=== PATIENT | female | born 1935 | race Caucasian/White ===

== ENCOUNTER → 2019-09-30 | Outpatient (CLI) | payer MEDICARE, OTHER ==
[~2019-09-30] MED LIST: AMLO5 PO; ASPI81CH PO; CYAN1000 PO; Colace100 MG PO; METO25ER PO; Norco 5-325 Ta1 EACH PO; Omeprazole20 M1 PO; Percocet 5-3251 EACH PO; SIMV80 PO
[2019-10-01 14:42] LABS: Stool Occult Bld Immuno 1 Positive (NEGATIVE)
== END | disposition home or self-care (01) ==
LOC: LAB 09:00 → LAB SHORT 09:00
PROVIDERS: Nurse Practitioner Family
DX: Z12.11 Encounter for screening for malignant neoplasm of colon (principal)
CPT/HCPCS: G0328

== ENCOUNTER 2019-11-10 13:18 | Day surgery (SDC) | payer MEDICARE, OTHER ==
[~2019-11-10] VITALS: Ht 165.1 cm; Wt 59.8 kg
[~2019-11-10 13:18] MED LIST changes: +LOW DOSE ASPIRI81 MG PO; +Metoprolol Tart25 MG PO; +Neurontin 100100 MG PO
== END 2019-11-10 15:35 | disposition home or self-care (01) ==
LOC: ORSCSDS 13:18
PROVIDERS: Surgery
PROC: 0DJD8ZZ Inspection of Lower Intestinal Tract, Via Natural or Artificial Opening Endoscopic (ICD-10-PCS; principal; 2019-11-10 14:45)
DX: R19.5 Other fecal abnormalities (principal); E78.5 Hyperlipidemia, unspecified; I10 Essential (primary) hypertension; K21.9 Gastro-esophageal reflux disease without esophagitis; Z87.891 Personal history of nicotine dependence; Z79.899 Other long term (current) drug therapy
CPT/HCPCS: J2704; J7120

== ENCOUNTER 2020-12-03 16:24 | Emergency (ER) | payer MEDICARE, OTHER ==
[~2020-12-03] VITALS: Ht 165.1 cm; Wt 61.2 kg
[2020-12-03 17:07] LABS: BASOPHILS ABSOLUTE AUTO 0.03 K/mm3 (0.00-0.23); BASOPHILS PERCENT AUTO 1 % (0-2); EOSINOPHILS PERCENT AUTO 2 % (0-6); Hematocrit 42.8 % (33.0-51.0); Hemoglobin 13.8 g/dL (11.5-16.0); IMMATURE GRAN ABSOLUTE AUTO 0.02 K/mm3 (0.00-0.10); IMMATURE GRAN PERCENT AUTO 0 % (0-1); LYMPHOCYTES ABSOLUTE AUTO 1.96 K/mm3 (0.84-5.20); LYMPHOCYTES PERCENT AUTO 32 % (21-46); MONOCYTES ABSOLUTE AUTO 0.75 K/mm3 (0.16-1.47); MONOCYTES PERCENT AUTO 12 % (4-13); Mean Corpuscular HGB 29.2 pg (26.0-34.0); Mean Corpuscular HGB Conc 32.2 g/dL (31.5-36.5); Mean Corpuscular Volume 91 fL (80-100); Mean Platelet Volume 12.1 fL (9.1-12.4); NEUTROPHILS ABSOLUTE AUTO 3.21 K/mm3 (1.96-9.15); NEUTROPHILS PERCENT AUTO 53 % (41-73); Platelet Count 109 K/mm3 (150-400); RDW Coefficient Variation 13.2 % (11.7-14.2); RDW Standard Deviation 44.6 fL (35.1-46.3); Red Blood Cell Count 4.73 M/mm3 (3.80-5.20); White Blood Cell Count 6.07 K/mm3 (4.00-11.30)
[2020-12-03 17:32] LABS: Alanine Aminotransfer (ALT/SGP 19 U/L (12-78); Albumin, Blood 3.3 g/dL (3.4-5.0); Alk Phos 94 U/L (50-136); Anion Gap 9 mmol/L (6-16); Aspartate Aminotrans (AST/SGOT 24 U/L (12-37); Bilirubin, Total 0.3 mg/dL (0.1-1.0); Blood Urea Nitrogen 21 mg/dL (8-24); Bun/Creatinine Ratio 26.8 (12.0-20.0); CO2, Blood 22 mmol/L (21-32); Calcium, Blood 8.8 mg/dL (8.5-10.1); Chloride, Blood 110 mmol/L (98-108); Creatinine, Blood 0.78 mg/dL (0.40-1.00); Globulin, Blood 3.3 g/dL (2.2-4.0); Glomerular Filtration Rate >60 (60-); Glucose, Blood 119 mg/dL (70-99); Potassium, Blood 3.8 mmol/L (3.5-5.5); Sodium, Blood 141 mmol/L (136-145); Total Protein, Blood 6.6 g/dL (6.4-8.2); Troponin I <0.015 ng/mL (0.000-0.040)
== END 2020-12-03 21:00 | disposition home or self-care (01) ==
LOC: ER 16:24
PROVIDERS: Physician Assistant
DX: R07.9 Chest pain, unspecified (principal); I10 Essential (primary) hypertension; E78.5 Hyperlipidemia, unspecified; K21.9 Gastro-esophageal reflux disease without esophagitis; Z79.82 Long term (current) use of aspirin; Z87.891 Personal history of nicotine dependence; Z79.899 Other long term (current) drug therapy
CPT/HCPCS: 36415; 71046; 80053; 84484; 85025; 93005; 93010

== ENCOUNTER 2021-05-21 17:49 | Inpatient (IN) | payer MEDICARE, OTHER ==
[~2021-05-21] VITALS: Ht 165.1 cm; Wt 56.6 kg
[~2021-05-21 17:49] MED LIST changes: +OMEP20ER PO; -Omeprazole20 M1 PO
[2021-05-21 18:12] LABS: BASOPHILS ABSOLUTE AUTO 0.06 K/mm3 (0.00-0.23); BASOPHILS PERCENT AUTO 1 % (0-2); EOSINOPHILS ABSOLUTE AUTO 0.07 K/mm3 (0.00-0.68); EOSINOPHILS PERCENT AUTO 1 % (0-6); Hematocrit 41.7 % (33.0-51.0); IMMATURE GRAN ABSOLUTE AUTO 0.02 K/mm3 (0.00-0.10); IMMATURE GRAN PERCENT AUTO 0 % (0-1); LYMPHOCYTES ABSOLUTE AUTO 2.44 K/mm3 (0.84-5.20); LYMPHOCYTES PERCENT AUTO 31 % (21-46); MONOCYTES ABSOLUTE AUTO 0.73 K/mm3 (0.16-1.47); MONOCYTES PERCENT AUTO 9 % (4-13); Mean Corpuscular HGB 30.7 pg (26.0-34.0); Mean Corpuscular HGB Conc 33.6 g/dL (31.5-36.5); Mean Corpuscular Volume 91 fL (80-100); NEUTROPHILS ABSOLUTE AUTO 4.62 K/mm3 (1.96-9.15); NEUTROPHILS PERCENT AUTO 58 % (41-73); Platelet Count 94 K/mm3 (150-400); RDW Coefficient Variation 14.5 % (11.7-14.2); RDW Standard Deviation 48.5 fL (35.1-46.3); Red Blood Cell Count 4.56 M/mm3 (3.80-5.20); White Blood Cell Count 7.94 K/mm3 (4.00-11.30)
[2021-05-21 18:25] LABS: Mean Platelet Volume 13.7 fL (9.1-12.4)
[2021-05-21 18:31] LABS: Alanine Aminotransfer (ALT/SGP 23 U/L (12-78); Albumin, Blood 3.7 g/dL (3.4-5.0); Albumin/Globulin Ratio 1.1 (0.8-1.8); Alk Phos 76 U/L (50-136); Anion Gap 9 mmol/L (6-16); Aspartate Aminotrans (AST/SGOT 27 U/L (12-37); Bilirubin, Total 0.9 mg/dL (0.1-1.0); Blood Urea Nitrogen 13 mg/dL (8-24); Bun/Creatinine Ratio 13.3 (12.0-20.0); CO2, Blood 21 mmol/L (21-32); Calcium, Blood 9.4 mg/dL (8.5-10.1); Chloride, Blood 109 mmol/L (98-108); Creatinine, Blood 0.97 mg/dL (0.40-1.00); Globulin, Blood 3.3 g/dL (2.2-4.0); Glomerular Filtration Rate 58 (60-); Glucose, Blood 106 mg/dL (70-99); Potassium, Blood 4.2 mmol/L (3.5-5.5); Sodium, Blood 139 mmol/L (136-145); Troponin I <0.015 ng/mL (0.000-0.040)
[2021-05-21 18:44] LABS: Thyroid Stimulating Hormone 4.86 uIU/mL (0.360-4.800)
[2021-05-21 23:58] LABS: Free Thyroxine 1.35 ng/dL (0.70-1.60); Magnesium, Blood 1.9 mg/dL (1.6-2.4)
[2021-05-22 02:20] LABS: CPK Creatine Kinase 131 U/L (26-193); Troponin I <0.015 ng/mL (0.000-0.040)
--- NOTE | 2021-05-22 05:22 | NUR ---
SHIFT SUMMARY PT NEW ED ADMIT. A/O X 4. HX OF SCOLIOSIS, CURVATURE TO SPINE NOTED. PT STEADY ON FEET, HOWEVER PT IS GETTING SOB W/ EXERTION. BSC PLACED BY BEDSIDE PT IS UP FREQUENTLY RELATED TO LASIX GIVEN. TELEMETRY ON. HEART RATE AFIB IN THE LOW 100'S-110'S. HEART RATE DOES GO UP INTO THE 130'S-140'S WITH EXERTION BUT ONLY STAYS UP THERE FOR A FEW MINUTES AND THEN RETURNS BACK TO THE LOW 100'S AFTER RESTING. NO COMPLAINTS OF PAIN. ASIDE FROM INTERMITTENT RVR PT'S VITALS STABLE. PT RESTING IN BED AT THIS TIME. WILL CONTINUE TO MONITOR.
[2021-05-22 10:34] LABS: BASOPHILS ABSOLUTE AUTO 0.05 K/mm3 (0.00-0.23); BASOPHILS PERCENT AUTO 1 % (0-2); EOSINOPHILS ABSOLUTE AUTO 0.04 K/mm3 (0.00-0.68); EOSINOPHILS PERCENT AUTO 1 % (0-6); Hematocrit 43.4 % (33.0-51.0); Hemoglobin 14.4 g/dL (11.5-16.0); IMMATURE GRAN ABSOLUTE AUTO 0.02 K/mm3 (0.00-0.10); IMMATURE GRAN PERCENT AUTO 0 % (0-1); LYMPHOCYTES ABSOLUTE AUTO 1.37 K/mm3 (0.84-5.20); LYMPHOCYTES PERCENT AUTO 17 % (21-46); MONOCYTES ABSOLUTE AUTO 0.75 K/mm3 (0.16-1.47); MONOCYTES PERCENT AUTO 9 % (4-13); Mean Corpuscular HGB Conc 33.2 g/dL (31.5-36.5); Mean Corpuscular Volume 90 fL (80-100); NEUTROPHILS ABSOLUTE AUTO 5.85 K/mm3 (1.96-9.15); NEUTROPHILS PERCENT AUTO 72 % (41-73); Platelet Count 92 K/mm3 (150-400); RDW Coefficient Variation 14.4 % (11.7-14.2); RDW Standard Deviation 46.9 fL (35.1-46.3); White Blood Cell Count 8.08 K/mm3 (4.00-11.30)
[2021-05-22 10:48] LABS: Mean Platelet Volume 13.6 fL (9.1-12.4)
[2021-05-22 10:52] LABS: Alanine Aminotransfer (ALT/SGP 22 U/L (12-78); Albumin, Blood 3.7 g/dL (3.4-5.0); Alk Phos 79 U/L (50-136); Anion Gap 10 mmol/L (6-16); Aspartate Aminotrans (AST/SGOT 27 U/L (12-37); Bilirubin, Total 1.2 mg/dL (0.1-1.0); Blood Urea Nitrogen 12 mg/dL (8-24); Bun/Creatinine Ratio 12.9 (12.0-20.0); CO2, Blood 21 mmol/L (21-32); CPK Creatine Kinase 136 U/L (26-193); Calcium, Blood 9.2 mg/dL (8.5-10.1); Chloride, Blood 108 mmol/L (98-108); Creatinine, Blood 0.93 mg/dL (0.40-1.00); Globulin, Blood 3.6 g/dL (2.2-4.0); Glomerular Filtration Rate >60 (60-); Glucose, Blood 100 mg/dL (70-99); Potassium, Blood 3.9 mmol/L (3.5-5.5); Sodium, Blood 139 mmol/L (136-145); Total Protein, Blood 7.3 g/dL (6.4-8.2)
[2021-05-22 10:54] LABS: Troponin I <0.015 ng/mL (0.000-0.040)
--- NOTE | 2021-05-22 16:03 | NUR ---
UPDATE ASSUMED CARE OF PT FROM [facility]. PT ALERT AND ORIENTED. HR AFIB 120'S. BP STABLE. O2 SATS REMAIN ABOVE 90% ON RA. PT DENIES ANY SOB OR PALPITATIONS. DILTIAZEM DRIP STARTED AT 5ML/H. PT ORIENTED TO ROOM AND UNIT. PT INSTRUCTED TO CALL BEFORE AMBULATION. AT BEDSIDE. WILL CONTINUE TO MONITOR CLOSELY
--- NOTE | 2021-05-22 17:29 | NUR ---
SHIFT SUMMARY HR REMAINS AFIB WITH RATE RANGING FROM 90-110. CARDIZEM GTT INCREASED TO 10ML/H. BP STABLE. PT DENIES ANY NEEDS. CALL LIGHT IN REACH. WILL CONTINUE TO MONITOR CLOSELY AND REPORT TO ONCOMING RN.
--- NOTE | 2021-05-22 19:14 | NUR ---
PATIENT TRANSFER: PATIENT TRANSFERRED TO PCU-13 c TELE. REPORT GIVEN TO LOIS BERRIOS.
--- NOTE | 2021-05-22 19:55 | NUR ---
ASSUMED CARE PT IS ALERT AND ORIENTED X4. PLEASANTLY CALM LAYING IN BED. DENIES CHEST PAIN OR SOB. DENIES ANY PAIN. VITALS ARE STABLE AND ON ROOM AIR WITH SATS ABOVE 92%. PT DENIES THE NEED TO USE BATHROOM AT THE TIME. HAS NOT BEEN OUT OF BED SINCE TRANSFERED TO UNIT. WAS ASKED TO CALL WHEN NEEDING TO GET UP. BED ALARM ON FOR ASSESSMENT OF AMBULATION. CALL LIGHT IS WITHIN REACH. WILL CONTINUE TO MONITOR.
--- NOTE | 2021-05-22 21:25 | NUR ---
PT'S HEART RATE UP TO 120-130'S WHILE AMBULATING TO AND FROM BATHROOM
[2021-05-23 04:42] LABS: BASOPHILS ABSOLUTE AUTO 0.06 K/mm3 (0.00-0.23); BASOPHILS PERCENT AUTO 1 % (0-2); EOSINOPHILS ABSOLUTE AUTO 0.13 K/mm3 (0.00-0.68); EOSINOPHILS PERCENT AUTO 2 % (0-6); Hematocrit 42.7 % (33.0-51.0); Hemoglobin 14.2 g/dL (11.5-16.0); IMMATURE GRAN ABSOLUTE AUTO 0.02 K/mm3 (0.00-0.10); IMMATURE GRAN PERCENT AUTO 0 % (0-1); LYMPHOCYTES PERCENT AUTO 27 % (21-46); MONOCYTES ABSOLUTE AUTO 0.83 K/mm3 (0.16-1.47); MONOCYTES PERCENT AUTO 12 % (4-13); Mean Corpuscular HGB 30.1 pg (26.0-34.0); Mean Corpuscular HGB Conc 33.3 g/dL (31.5-36.5); Mean Corpuscular Volume 91 fL (80-100); NEUTROPHILS ABSOLUTE AUTO 4.24 K/mm3 (1.96-9.15); NEUTROPHILS PERCENT AUTO 59 % (41-73); Platelet Count 89 K/mm3 (150-400); RDW Coefficient Variation 14.3 % (11.7-14.2); RDW Standard Deviation 47.5 fL (35.1-46.3); Red Blood Cell Count 4.71 M/mm3 (3.80-5.20); White Blood Cell Count 7.18 K/mm3 (4.00-11.30)
[2021-05-23 04:49] LABS: Mean Platelet Volume 13.5 fL (9.1-12.4)
[2021-05-23 05:04] LABS: Albumin, Blood 3.4 g/dL (3.4-5.0); Anion Gap 7 mmol/L (6-16); Blood Urea Nitrogen 10 mg/dL (8-24); Bun/Creatinine Ratio 13.3 (12.0-20.0); CO2, Blood 25 mmol/L (21-32); Calcium, Blood 8.9 mg/dL (8.5-10.1); Chloride, Blood 105 mmol/L (98-108); Creatinine, Blood 0.75 mg/dL (0.40-1.00); Glomerular Filtration Rate >60 (60-); Glucose, Blood 76 mg/dL (70-99); Magnesium, Blood 1.9 mg/dL (1.6-2.4); Phosphorus, Blood 3.9 mg/dL (2.5-4.9); Potassium, Blood 3.4 mmol/L (3.5-5.5); Sodium, Blood 137 mmol/L (136-145)
--- NOTE | 2021-05-23 06:00 | NUR ---
SHIFT SUMMARY PT ALERT AND ORIENTED. DENIES CP OR SOB. VITALS ARE STABLE AND ON ROOM AIR. HEART RATE HAS RANGED AT 120-130 WHEN PATIENT IS UP TO THE BATHROOM. THERE HAVE BEEN NO ACCUTE CHANGES.
--- NOTE | 2021-05-23 18:00 | NUR ---
SHIFT SUMMARY NO ACUTE EVENTS THIS SHIFT, VSS. ON ROOM AIR, TOLERATING WELL. PATIENT ALERT AND ORIENTED, COOPERATIVE WITH CARE. PATIENT DENIES PAIN/DISCMOFORT, ABLE TO AMBULATE INDEPENDENTLY IN ROOM. PT HR ELEVATED AT START OF SHIFT IN 120S, THROUGH DAY CAME DOWN AND NOW MAINTAINING IN 90S AT END OF SHIFT.
[2021-05-24 04:22] LABS: Hematocrit 42.8 % (33.0-51.0); Hemoglobin 14.4 g/dL (11.5-16.0)
[2021-05-24 04:36] LABS: Albumin, Blood 3.2 g/dL (3.4-5.0); Anion Gap 8 mmol/L (6-16); Blood Urea Nitrogen 13 mg/dL (8-24); Bun/Creatinine Ratio 17.6 (12.0-20.0); CO2, Blood 25 mmol/L (21-32); Calcium, Blood 8.7 mg/dL (8.5-10.1); Chloride, Blood 104 mmol/L (98-108); Creatinine, Blood 0.74 mg/dL (0.40-1.00); Glomerular Filtration Rate >60 (60-); Glucose, Blood 94 mg/dL (70-99); Phosphorus, Blood 4.1 mg/dL (2.5-4.9); Potassium, Blood 3.6 mmol/L (3.5-5.5); Sodium, Blood 137 mmol/L (136-145)
--- NOTE | 2021-05-24 04:52 | NUR ---
SHIFT SUMMARY PT AXO. IN AFIB, CONTROLLED 80'S HR WITH STABLE BP. VSS ON RA. PT STATES BEING CONFORTABLE T/O SHIFT. RESTING OFF AND ON T/O NIGHT. HAS BEEN USING CALL LIGHT APPROPRIATELY. OTHERWISE, PT REQUIRING LITTLE FROM NURSE.
--- NOTE | 2021-05-24 08:00 | NUR ---
PT ALERT AND ORIENTED X4. ON ROOM AIR SATING HIGH 90'S. DENIES CHEST PAIN/PRESSURE. VITAL SIGNS STABLE WITH ELEVATED HR 140'S. PO CARDIZEM, GIVEN THIS AM. TELE SHOWING AFIB. CALL PLACED TO DR. RUBIO. CARDIOLOGY CONSULT IN PLACE. DENIES OVERALL PAIN. CHRONIC NUMBNESS/TINGLING TO RIGHT FOOT. BOWEL TONES HEARD. ANTIBIOTICS INFUSED THIS AM. PT NOT VERY INTERESTED IN BREAKFAST. NPO AFTER BREAKFAST. WILL CONTINUE TO MONITOR.
--- NOTE | 2021-05-24 10:54 | NUR ---
DR. GARRISON IN TO SEE PATIENT. NEW ORDERS TO START CARDIZEM DRIP. CARDIZEM, DRIP STARTED AT 5MG/HR. WILL CONTINUE TO MONITOR BP AND HR. HOLDING PO CARDIZEM AT THIS TIME PER ORDERS.
--- NOTE | 2021-05-24 12:15 | NUR ---
PT VITAL SIGNS STABLE. PLAN FOR DENIZ TODAY AND POSSIBLE CARDIOVERSION PER DR. GARRISON. NPO. DAUGHTER NATHANAEL AWARE AND ON WAY HERE. WILL PAGE DR. GARRISON WHEN DAUGHTER IS HERE. PLAN TO START HEPARIN TONIGHT AT 1800. NIKOLAY HAS BEEN DC'ED. PATIENT CURRENTLY ON CARDIZEM AT 5MG/HR HR MAINTAINING MID 90'S. BP STABLE AT THIS TIME. WILL CONTINUE TO MONITOR.
--- NOTE | 2021-05-24 13:28 | NUR ---
BP 96/68. CARDIZEM TURNED OFF AT 1326 BASED ON PARAMETERS. PAGE PLACED TO DR. GARRISON. WILL CONTINUE TO MONITOR.
[2021-05-24 13:54] LABS: International Normalized Ratio 1.17; Prothrombin Time Results 12.5 Sec (9.7-11.5)
--- NOTE | 2021-05-24 15:54 | NUR ---
PT AT DENIZ WITH POSSIBLE CARDIOVERSION PROCEDURE. DR. PATEL AWARE OF PLATELET COUNT.
--- NOTE | 2021-05-24 16:20 | NUR ---
PT DENIZ/CARDIOVERSION COMPLETED SUCCESSFULLY, 1 200J SHOCK, SINUS. 12L EKG DONE PER V/O, SINUS. DAUGHTER W PT NOW, PT AWAKE AND VERBALIZES UNDERSTANDING, DENTURES BACK IN PT MOUTH, WILL RETURN PT TO PCU 13 BY PRAVIN.
--- NOTE | 2021-05-24 19:23 | NUR ---
SHIFT SUMMARY: NO ACUTE CHANGES. PT REMAINS STABLE AFTER DENIZ AND CARDIOVERSION. TELE SHOWING SINUS WITH HR 60-70'S. DENIES CHEST PAIN/PRESSURE. HEPARIN STARTED AT 1703. POWERGLIDE TO BE INSERTED TO START AMIODARONE. PT DOES NOT HAVE MUCH OF AN APPEATITE. DRINKING WATER AND EATING ICE CREAM. PLAN FOR NPO AT MIDNIGHT. EKG AT 0500. CALL LIGHT IN REACH. REPORTED OFF TO ONCOMING RN.
--- NOTE | 2021-05-25 01:34 | NUR ---
0115: RECEIVED PHONE CALL FROM [facility] FROM LAB WITH A CRITICAL VALUE, PTT > 139. 0120: RECEIVED PHONE CALL FROM [facility] FROM LAB, WITH ORDER TO STOP HEPARIN FOR ONE HOUR. RN AND VELIA Davis STOPPED HEPARIN. 0125: NOTIFIED CHARGE NURSE TIA Hudson 0135: RE-DRAWING [facility] FROM [facility].
--- NOTE | 2021-05-25 02:19 | NUR ---
CRITICAL VALUE 0220: RECEIVED PHONE CALL FROM [facility] AT LAB, OF A PTT >139. 022: PLACED PHONE CALL TO SARABJIT BECERRA IN PHARMACY - NOTIFIED OF CRITICAL VALUE. ORDER TO RESTART HEP DRIP AT 0300 AT A LOWER RATE 11 U/KG/HR, PER EMAR.
[2021-05-25 05:33] LABS: Hematocrit 39.5 % (33.0-51.0); Hemoglobin 13.1 g/dL (11.5-16.0); Mean Corpuscular HGB 29.9 pg (26.0-34.0); Mean Corpuscular HGB Conc 33.2 g/dL (31.5-36.5); Mean Corpuscular Volume 90 fL (80-100); Platelet Count 95 K/mm3 (150-400); RDW Coefficient Variation 14.2 % (11.7-14.2); Red Blood Cell Count 4.38 M/mm3 (3.80-5.20); White Blood Cell Count 7.26 K/mm3 (4.00-11.30)
[2021-05-25 05:34] LABS: Mean Platelet Volume 14.2 fL (9.1-12.4)
[2021-05-25 05:49] LABS: Anion Gap 7 mmol/L (6-16); Blood Urea Nitrogen 14 mg/dL (8-24); Bun/Creatinine Ratio 17.8 (12.0-20.0); CHOL/HDL RATIO 1.6; CO2, Blood 26 mmol/L (21-32); Calcium, Blood 8.1 mg/dL (8.5-10.1); Chloride, Blood 104 mmol/L (98-108); Cholesterol 107 mg/dL (50-200); Creatinine, Blood 0.79 mg/dL (0.40-1.00); Glomerular Filtration Rate >60 (60-); Glucose, Blood 90 mg/dL (70-99); HDL Cholesterol 65 mg/dL (>39); LDL/HDL RATIO 0.5; Low Density Lipoprotein Chol 30 mg/dL (0-110); Magnesium, Blood 1.8 mg/dL (1.6-2.4); Potassium, Blood 3.5 mmol/L (3.5-5.5); Sodium, Blood 137 mmol/L (136-145); Triglycerides 61 mg/dL (30-160); Very Low Density Lipoprot Chol 12 mg/dL (6-32)
[2021-05-25 05:56] LABS: BASOPHILS ABSOLUTE MAN 0.07 K/mm3 (0.00-0.23); BASOPHILS PERCENT MAN 1 % (0-2); EOSINOPHILS ABSOLUTE MAN 0.14 K/mm3 (0.00-0.68); EOSINOPHILS PERCENT MAN 2 % (0-6); LYMPHOCYTES % ATYPICAL MANUAL 1 % (0-0); LYMPHOCYTES ABSOLUTE MAN 1.81 K/mm3 (0.84-5.20); LYMPHOCYTES PERCENT MAN 24 % (21-46); MONOCYTES ABSOLUTE MAN 1.01 K/mm3 (0.16-1.47); MONOCYTES PERCENT MAN 14 % (4-13); NEUTROPHILS ABSOLUTE MAN 4.21 K/mm3 (1.96-9.15); SEG NEUTROPHILS PERCENT MAN 58 % (41-73); TOTAL CELLS COUNTED 100
--- NOTE | 2021-05-25 06:44 | NUR ---
SHIFT SUMMARY PT HAS HEPARIN INFUSING INTO HER RIGHT HAND AND AMIODARONE INTO HER RIGHT UA POWERGLIDE. POWERGLIDE DRAWS FOR LABS. PT HAD PTT >139, CRITICAL VALUE LABS AT 0115 AND 0220. SHE IS INDEPENDENT TO THE BSC. DENIES CHEST PAIN. WILL CONTINUE TO MONITOR.
--- NOTE | 2021-05-25 11:00 | NUR ---
PT ALERT AND ORIENTED X4. ON ROOM AIR SATING MID 90'S. TELE SHOWING SINUS WITH SINUS WITH HR 60-70'S. VITAL SIGNS STABLE. DENIES CHEST PAIN/PRESSURE. WAITING FOR ANGIOGRAM THIS AM. DR. GUADALUPE INTO SEE PATIENT THIS MORNING TO EXPLAIN PROCEDURE. DENIES PAIN. USING BSC. HEPARIN AND AMIO INFUSING. ANTIBIOTICS INFUSED WELL. ONE EPISODE OF DIARRHEA THIS AFTERNOON. WILL CONTINUE TO MONITOR.
--- NOTE | 2021-05-25 13:04 | NUR ---
PT TAKEN TO [facility] FOR ANGIOGRAM.
--- NOTE | 2021-05-25 15:46 | NUR ---
ACT RESULTS 169
--- NOTE | 2021-05-25 16:20 | NUR ---
RIGHT FEMORAL ARTERIAL SHEATH PULLED BY ISAC GARCIA RN WITH GOOD HEMOSTASIS. MANUAL PRESSURE HELD.
--- NOTE | 2021-05-25 16:24 | NUR ---
ACT RESULTS 158 @ 16:20
--- NOTE | 2021-05-25 16:39 | NUR ---
2 CC AIR REMOVED FROM RIGHT RADIAL TR BAND SITE SOFT AND NONTENDER.
--- NOTE | 2021-05-25 16:45 | NUR ---
RIGHT FEMORAL VENOUS SHEATH REMOVED BY ISAC GARCIA WITH GOOD HEMOSTASIS
--- NOTE | 2021-05-25 16:49 | NUR ---
2 MORE CC AIR REMOVED FROM TR. SITE REMAINS STABLE
--- NOTE | 2021-05-25 16:56 | NUR ---
A TOTAL OF 6 CC HAVE BEEN REMOVED FROM TR BAND.
--- NOTE | 2021-05-25 16:57 | NUR ---
1630 PULLED ARTERIAL SHEATH 4 FR. FROM THE RFA AND HELD 20 MINUTES OF MANUAL PRESSURE HELD AND THEN VENOUS SHEATH 6 FR. PULLED AND MANUAL PRESSURE HELD FOR ANOTHER 10 MINUTES. DECLAN APPLIED TO THE RFA/RFV ACCESS SITE. HEMOSTASIS OBTAINED AND DRESSING. PATEINT REPOSITIONED IN THE BED AND LEG STRAP REAPPLIED TO THE RIGHT LEG TO REMIND PATIENT TO KEEP THE RIGHT LEG STRAIGHT. VVS.
--- NOTE | 2021-05-25 17:01 | NUR ---
A TOTAL OF 8 CC REMOVED FROM TR BAND. RIGHT GROIN SITE SOFT AND NONTENDER NO SWELLING
--- NOTE | 2021-05-25 17:14 | NUR ---
REMAINING AIR HAS BEEN REMOVED FROM TR BAND. SITE REMAINS SOFT AND NONTENDER
--- NOTE | 2021-05-25 17:36 | NUR ---
PATIENT RETURNED TO PCU 13. SEE TRNSFER OF CARE NOTE
--- NOTE | 2021-05-25 18:14 | NUR ---
PT BACK FROM ANGIOGRAM AT 1726. RIGHT RADIAL AND RIGHT GROIN SITE. VITAL SIGNS STABLE. NO STENT PLACEMENT. DIAGNOSTIC ANGIOGRAM FOR POSSIBLE MITRAL VALVE CLIPPING OR REPLACEMENT IN GERRY. PT RETURNS WITH RIGHT RADIAL SIGHT TR BAND DEFLATED. ABLE TO REMOVE BAND AT 1830. NO SIGNS OF BLEEDING OR HEMATOMA. SCANT AMOUNT OF DRAINAGE UNDER TR BAND REMAINS UNCHANGED. PT DENIES PAIN. RIGHT GROIN SIGHT WITH DECLAN PATCH. DRESSING C/D/I. SOFT AND NONTENDER. NO SIGNS OF BLEEDING OR HEMATOMA IN GROIN. PT EDUCATED ON POST ANGIOGRAM RESTRICTIONS. LYING FLAT AND ARM BOARD ON. POST VITAL SIGNS STABLE. WILL CONTINUE TO MONITOR SIGHTS. CARDIAC FINGER FOOD DIET ORDERED, PT NOT INTERESTED IN EATING AT THIS TIME. CALL PLACED TO DAUGHTER.
--- NOTE | 2021-05-26 02:09 | NUR ---
PT UNDERWENT ANGIO TODAY, WITH RIGHT RADIAL AND RIGHT GROIN SITE ACCESS. RIGHT GROIN SITE IS COVERED WITH A DECLAN DRESSING, NO SIGNS OF BLEEDING OR HEMATOMA. PT WAS RECOVERED PER POLICY, BY SLOWLY ELEVATED HOB 15 DEG INCREMENTALLY AND ASSESSING FOR BLEEDING AT GROIN SITE. PT WAS OUT OF BED BY 2100 , AND AMBULATED TO [facility] WITH ONE NURSE STAND BY ASSIST. PT HAS RADIAL SITE WITH ARMBOARD IN PLACE. CLEAR TEGADERM APPLIED TO COVER SITE. NO BRUISING, DRAINAGE NOTED, RADIAL PULSE PRESENT AND STRONG. PT MONITORED VIA TELEMETRY, SINUS 67. VSS. STARTED PO XARELTO THIS EVENING.
[2021-05-26 04:42] LABS: BASOPHILS ABSOLUTE AUTO 0.06 K/mm3 (0.00-0.23); BASOPHILS PERCENT AUTO 1 % (0-2); EOSINOPHILS PERCENT AUTO 2 % (0-6); Hematocrit 39.5 % (33.0-51.0); Hemoglobin 13.2 g/dL (11.5-16.0); IMMATURE GRAN ABSOLUTE AUTO 0.02 K/mm3 (0.00-0.10); IMMATURE GRAN PERCENT AUTO 0 % (0-1); LYMPHOCYTES ABSOLUTE AUTO 1.49 K/mm3 (0.84-5.20); LYMPHOCYTES PERCENT AUTO 23 % (21-46); MONOCYTES PERCENT AUTO 12 % (4-13); Mean Corpuscular HGB 30.3 pg (26.0-34.0); Mean Corpuscular HGB Conc 33.4 g/dL (31.5-36.5); Mean Corpuscular Volume 91 fL (80-100); NEUTROPHILS ABSOLUTE AUTO 4.16 K/mm3 (1.96-9.15); NEUTROPHILS PERCENT AUTO 63 % (41-73); Platelet Count 91 K/mm3 (150-400); RDW Coefficient Variation 14.3 % (11.7-14.2); RDW Standard Deviation 47.8 fL (35.1-46.3); Red Blood Cell Count 4.35 M/mm3 (3.80-5.20); White Blood Cell Count 6.63 K/mm3 (4.00-11.30)
[2021-05-26 04:59] LABS: Anion Gap 8 mmol/L (6-16); Blood Urea Nitrogen 14 mg/dL (8-24); Bun/Creatinine Ratio 16.7 (12.0-20.0); CO2, Blood 24 mmol/L (21-32); Calcium, Blood 8.6 mg/dL (8.5-10.1); Chloride, Blood 107 mmol/L (98-108); Creatinine, Blood 0.84 mg/dL (0.40-1.00); Glomerular Filtration Rate >60 (60-); Glucose, Blood 80 mg/dL (70-99); Potassium, Blood 4.2 mmol/L (3.5-5.5); Sodium, Blood 139 mmol/L (136-145)
[2021-05-26] MEDS ORDERED: Amiodarone HCl200 MG PO (11:11)
[2021-05-26] MEDS ORDERED: XARELTO20 MG PO (11:12)
[2021-05-26] MEDS ORDERED: FURO40 PO (11:12)
--- NOTE | 2021-05-26 13:44 | NUR ---
PT DISHCARGED PT PROVIDED WITH DISHCARGE INSTRUCTIONS PER PHYSICIAN ORDER. IV REMOVED, POWERGLIDE REMOVED. TELE REMOVED. PT'S MEDICATIONS FAXED TO PT'S PREFERRED PHARMACY. PT BROUGHT TO DAUGHTER'S VEHICLE BY PRODUCTION GRIP WITH ALL BELONGINGS BY WHEELCHAIR.
== END 2021-05-26 13:25 | disposition home or self-care (01) | DRG 286 ==
LOC: ER 17:49 → MEDS 19:38 → PCU 05-22 14:01 → MEDS 05-22 14:01 → PCU 05-22 15:31
PROVIDERS: Emergency Medicine; Internal Medicine; Internal Medicine Cardiovascular Disease; Physician Assistant; ADMIT Internal Medicine
PROC: 02HP32Z Insertion of Monitoring Device into Pulmonary Trunk, Percutaneous Approach (ICD-10-PCS; 2021-05-24)
PROC: 4A023N8 Measurement of Cardiac Sampling and Pressure, Bilateral, Percutaneous Approach (ICD-10-PCS; 2021-05-24)
PROC: B211YZZ Fluoroscopy of Multiple Coronary Arteries using Other Contrast (ICD-10-PCS; 2021-05-24)
PROC: 5A2204Z Restoration of Cardiac Rhythm, Single (ICD-10-PCS; principal; 2021-05-25)
DX: I48.0 Paroxysmal atrial fibrillation (principal); J96.01 Acute respiratory failure with hypoxia; I50.33 Acute on chronic diastolic (congestive) heart failure; J18.9 Pneumonia, unspecified organism; Q21.1 Atrial septal defect; Q24.5 Malformation of coronary vessels; I11.0 Hypertensive heart disease with heart failure; K21.9 Gastro-esophageal reflux disease without esophagitis; G62.9 Polyneuropathy, unspecified; I27.20 Pulmonary hypertension, unspecified; E87.6 Hypokalemia; I34.0 Nonrheumatic mitral (valve) insufficiency; M40.209 Unspecified kyphosis, site unspecified; E78.00 Pure hypercholesterolemia, unspecified; D69.6 Thrombocytopenia, unspecified; E78.5 Hyperlipidemia, unspecified; Z87.891 Personal history of nicotine dependence; Z79.82 Long term (current) use of aspirin; Z79.899 Other long term (current) drug therapy
CPT/HCPCS: 36415; 71045; 76937; 80048; 80053; 80061; 80069; 82550; 83735; 83880; 84145; 84439; 84443; 84484; 85014; 85018; 85025; 85347; 85379; 85610; 85730; 93005; 93010; 93306; 93312; 93325; 93456; 96374; 96375; 96376; 99152; 99153; 99285-25; A9270; C1751; C1769; C1894; G0378; J0282; J0696; J1644; J1940; J2250; J2370; J2704; J3010; J7030; J7050; J7060; Q9967

== ENCOUNTER 2021-06-01 12:47 | Emergency (ER) | payer MEDICARE, OTHER ==
[~2021-06-01] VITALS: Ht 165.1 cm; Wt 56.7 kg
[~2021-06-01 12:47] MED LIST changes: +Amiodarone HCl200 MG PO; +FURO40 PO; +XARELTO20 MG PO
[2021-06-01 13:40] LABS: BASOPHILS ABSOLUTE AUTO 0.05 K/mm3 (0.00-0.23); BASOPHILS PERCENT AUTO 1 % (0-2); EOSINOPHILS ABSOLUTE AUTO 0.04 K/mm3 (0.00-0.68); EOSINOPHILS PERCENT AUTO 1 % (0-6); Hematocrit 43.9 % (33.0-51.0); Hemoglobin 14.8 g/dL (11.5-16.0); IMMATURE GRAN ABSOLUTE AUTO 0.03 K/mm3 (0.00-0.10); IMMATURE GRAN PERCENT AUTO 1 % (0-1); LYMPHOCYTES ABSOLUTE AUTO 1.35 K/mm3 (0.84-5.20); LYMPHOCYTES PERCENT AUTO 26 % (21-46); MONOCYTES ABSOLUTE AUTO 0.53 K/mm3 (0.16-1.47); MONOCYTES PERCENT AUTO 10 % (4-13); Mean Corpuscular HGB 30.5 pg (26.0-34.0); Mean Corpuscular HGB Conc 33.7 g/dL (31.5-36.5); Mean Corpuscular Volume 90 fL (80-100); NEUTROPHILS ABSOLUTE AUTO 3.29 K/mm3 (1.96-9.15); NEUTROPHILS PERCENT AUTO 62 % (41-73); Platelet Count 111 K/mm3 (150-400); RDW Coefficient Variation 13.6 % (11.7-14.2); RDW Standard Deviation 45.5 fL (35.1-46.3); Red Blood Cell Count 4.86 M/mm3 (3.80-5.20); White Blood Cell Count 5.29 K/mm3 (4.00-11.30)
[2021-06-01 13:57] LABS: Alanine Aminotransfer (ALT/SGP 32 U/L (12-78); Albumin, Blood 3.8 g/dL (3.4-5.0); Albumin/Globulin Ratio 1.1 (0.8-1.8); Alk Phos 66 U/L (50-136); Anion Gap 7 mmol/L (6-16); Aspartate Aminotrans (AST/SGOT 33 U/L (12-37); Bilirubin, Total 0.6 mg/dL (0.1-1.0); Blood Urea Nitrogen 13 mg/dL (8-24); Bun/Creatinine Ratio 10.3 (12.0-20.0); CO2, Blood 28 mmol/L (21-32); Calcium, Blood 9.4 mg/dL (8.5-10.1); Chloride, Blood 99 mmol/L (98-108); Creatinine, Blood 1.26 mg/dL (0.40-1.00); Globulin, Blood 3.6 g/dL (2.2-4.0); Glomerular Filtration Rate 43 (60-); Glucose, Blood 125 mg/dL (70-99); Potassium, Blood 3.9 mmol/L (3.5-5.5); Sodium, Blood 134 mmol/L (136-145); Total Protein, Blood 7.4 g/dL (6.4-8.2); Troponin I <0.015 ng/mL (0.000-0.040)
== END 2021-06-01 14:50 | disposition home or self-care (01) ==
LOC: ER 12:47
PROVIDERS: Physician Assistant
DX: R55 Syncope and collapse (principal); S00.11XA Contusion of right eyelid and periocular area, initial encounter; I10 Essential (primary) hypertension; I48.91 Unspecified atrial fibrillation; E78.5 Hyperlipidemia, unspecified; K21.9 Gastro-esophageal reflux disease without esophagitis; Z79.01 Long term (current) use of anticoagulants; Z79.899 Other long term (current) drug therapy; W18.30XA Fall on same level, unspecified, initial encounter
CPT/HCPCS: 36415; 70450; 72125; 80053; 84484; 85025; 93005; 93010; 94060; 94726; 94729; 99285-25; A9270

== ENCOUNTER 2021-06-05 18:44 | Emergency (ER) | payer MEDICARE, OTHER ==
[~2021-06-05] VITALS: Ht 165.1 cm; Wt 55.3 kg
[2021-06-05 19:17] LABS: BASOPHILS ABSOLUTE AUTO 0.05 K/mm3 (0.00-0.23); BASOPHILS PERCENT AUTO 1 % (0-2); Hematocrit 41.4 % (33.0-51.0); Hemoglobin 14.5 g/dL (11.5-16.0); LYMPHOCYTES ABSOLUTE AUTO 0.94 K/mm3 (0.84-5.20); LYMPHOCYTES PERCENT AUTO 10 % (21-46); MONOCYTES ABSOLUTE AUTO 1.35 K/mm3 (0.16-1.47); MONOCYTES PERCENT AUTO 15 % (4-13); Mean Corpuscular HGB 30.1 pg (26.0-34.0); Mean Corpuscular Volume 86 fL (80-100); Platelet Count 119 K/mm3 (150-400); RDW Coefficient Variation 13.2 % (11.7-14.2); RDW Standard Deviation 41.5 fL (35.1-46.3); Red Blood Cell Count 4.81 M/mm3 (3.80-5.20); White Blood Cell Count 9.15 K/mm3 (4.00-11.30)
[2021-06-05 19:18] LABS: EOSINOPHILS PERCENT AUTO 0 % (0-6); IMMATURE GRAN ABSOLUTE AUTO 0.05 K/mm3 (0.00-0.10); IMMATURE GRAN PERCENT AUTO 1 % (0-1); NEUTROPHILS ABSOLUTE AUTO 6.76 K/mm3 (1.96-9.15); NEUTROPHILS PERCENT AUTO 74 % (41-73)
[2021-06-05 19:37] LABS: Albumin, Blood 2.9 g/dL (3.4-5.0); Albumin/Globulin Ratio 0.8 (0.8-1.8); Bilirubin, Total 0.5 mg/dL (0.1-1.0); Bun/Creatinine Ratio 14.1 (12.0-20.0); Calcium, Blood 8.5 mg/dL (8.5-10.1); Creatinine, Blood 0.99 mg/dL (0.40-1.00); Globulin, Blood 3.7 g/dL (2.2-4.0); Total Protein, Blood 6.6 g/dL (6.4-8.2)
[2021-06-06 00:13] LABS: Source, Urine Clean Catch
[2021-06-06 00:16] LABS: Bilirubin, Urine Neg (Neg); Blood, Urine 1+ (Neg); Glucose Qualitative, Urine Neg (Neg); Ketones, Urine Neg (Neg); Leukocyte Esterase, Urine 2+ (Neg); Nitrite, Urine Neg (Neg); Protein, Urine 1+ (Neg); Specific Gravity, Urine 1.005 (1.003-1.022); Urobilinogen, Urine NORM (Normal)
[2021-06-06 00:24] LABS: Appearance, Urine Clear (Clear); Color, Urine Yellow (P-Yellow)
[2021-06-06 00:25] LABS: Bacteria Mod /hpf; Squamous Epithelial Cells Few /hpf (Few)
[2021-06-06] MEDS ORDERED: ONDA4ODT MM (01:28)
[2021-06-06] MEDS ORDERED: AMOCLA875 PO (01:28)
[2021-06-06 03:54] LABS: Adenovirus F 40/41 Not Detected (NOT DETECT); Astrovirus Not Detected (NOT DETECT); Campylobacter Sp Not Detected (NOT DETECT); Cryptosporidium Not Detected (NOT DETECT); Cyclospora Cayetanensis Not Detected (NOT DETECT); E. Coli O157 Not Detected (NOT DETECT); Entamoeba Histolytica Not Detected (NOT DETECT); Enteroaggregative E. coli-EAEC Not Detected (NOT DETECT); Enteropathogenic E. coli-EPEC Not Detected (NOT DETECT); Enterotoxigenic E. coli-ETEC Not Detected (NOT DETECT); Giardia Lamblia Not Detected (NOT DETECT); Norovirus GI/GII Not Detected (NOT DETECT); Plesiomonas Shigelloides Not Detected (NOT DETECT); Rotavirus A Not Detected (NOT DETECT); Salmonella Sp Not Detected (NOT DETECT); Sapovirus Not Detected (NOT DETECT); Shiga Toxin-prod E. coli-STEC Not Detected (NOT DETECT); Shigella/Enteroin E. coli-EIEC Not Detected (NOT DETECT); Vibrio Cholerae Not Detected (NOT DETECT); Vibrio Sp Not Detected (NOT DETECT); Yersinia Enterocolitica Not Detected (NOT DETECT)
== END 2021-06-06 01:35 | disposition home or self-care (01) ==
LOC: ER 18:44
PROVIDERS: Physician Assistant
DX: K52.9 Noninfective gastroenteritis and colitis, unspecified (principal); E87.6 Hypokalemia; I10 Essential (primary) hypertension; E78.5 Hyperlipidemia, unspecified; K21.9 Gastro-esophageal reflux disease without esophagitis; R19.7 Diarrhea, unspecified; I48.91 Unspecified atrial fibrillation; Z79.01 Long term (current) use of anticoagulants; Z88.8 Allergy status to other drugs, medicaments and biological substances; Z79.899 Other long term (current) drug therapy
CPT/HCPCS: 0097U; 71101; 74177; 80053; 81001; 83690; 84484; 85025; 87086; 87324; 93005; 93010; 96374; 99284-25; A9270; J2405; J7030; Q9967

== ENCOUNTER 2021-10-09 08:44 | Emergency (ER) | payer MEDICARE, OTHER ==
[~2021-10-09] VITALS: Ht 165.1 cm; Wt 54.0 kg
[~2021-10-09 08:44] MED LIST changes: +AMOCLA875 PO; +ONDA4ODT MM
[2021-10-09 10:16] LABS: BASOPHILS ABSOLUTE AUTO 0.05 K/mm3 (0.00-0.23); BASOPHILS PERCENT AUTO 1 % (0-2); EOSINOPHILS ABSOLUTE AUTO 0.07 K/mm3 (0.00-0.68); EOSINOPHILS PERCENT AUTO 1 % (0-6); Hematocrit 46.7 % (33.0-51.0); Hemoglobin 15.2 g/dL (11.5-16.0); IMMATURE GRAN ABSOLUTE AUTO 0.01 K/mm3 (0.00-0.10); IMMATURE GRAN PERCENT AUTO 0 % (0-1); LYMPHOCYTES ABSOLUTE AUTO 1.52 K/mm3 (0.84-5.20); LYMPHOCYTES PERCENT AUTO 27 % (21-46); MONOCYTES ABSOLUTE AUTO 0.66 K/mm3 (0.16-1.47); MONOCYTES PERCENT AUTO 12 % (4-13); Mean Corpuscular HGB 28.7 pg (26.0-34.0); Mean Corpuscular HGB Conc 32.5 g/dL (31.5-36.5); Mean Corpuscular Volume 88 fL (80-100); Mean Platelet Volume 12.6 fL (9.1-12.4); NEUTROPHILS ABSOLUTE AUTO 3.42 K/mm3 (1.96-9.15); NEUTROPHILS PERCENT AUTO 60 % (41-73); Platelet Count 116 K/mm3 (150-400); RDW Coefficient Variation 14.6 % (11.7-14.2); RDW Standard Deviation 46.9 fL (35.1-46.3); Red Blood Cell Count 5.29 M/mm3 (3.80-5.20); White Blood Cell Count 5.73 K/mm3 (4.00-11.30)
[2021-10-09 10:28] LABS: Alanine Aminotransfer (ALT/SGP 32 U/L (12-78); Albumin, Blood 3.2 g/dL (3.4-5.0); Albumin/Globulin Ratio 0.8 (0.8-1.8); Alk Phos 71 U/L (50-136); Anion Gap 5 mmol/L (6-16); Aspartate Aminotrans (AST/SGOT 40 U/L (12-37); Bilirubin, Total 0.4 mg/dL (0.1-1.0); Blood Urea Nitrogen 10 mg/dL (8-24); Bun/Creatinine Ratio 11.1 (12.0-20.0); CO2, Blood 27 mmol/L (21-32); Calcium, Blood 9.4 mg/dL (8.5-10.1); Chloride, Blood 107 mmol/L (98-108); Globulin, Blood 4.1 g/dL (2.2-4.0); Glomerular Filtration Rate 60 (60-); Glucose, Blood 100 mg/dL (70-99); Potassium, Blood 3.9 mmol/L (3.5-5.5); Sodium, Blood 139 mmol/L (136-145); Total Protein, Blood 7.3 g/dL (6.4-8.2); Troponin I <0.015 ng/mL (0.000-0.040)
[2021-10-09] MEDS ORDERED: HYDROCODONE-AC1 EA10 PO (15:29)
== END 2021-10-09 15:46 | disposition home or self-care (01) ==
LOC: ER 08:44
PROVIDERS: Physician Assistant
DX: R07.89 Other chest pain (principal); I48.91 Unspecified atrial fibrillation; Z79.899 Other long term (current) drug therapy; Z87.891 Personal history of nicotine dependence
CPT/HCPCS: 36415; 71046; 71260; 80053; 83690; 83880; 84484; 85025; 93005; 93010; 96374; 99285-25; J1885; Q9967

== ENCOUNTER 2022-06-03 15:13 | Emergency (ER) | payer MEDICARE, OTHER ==
[~2022-06-03] VITALS: Ht 157.5 cm; Wt 53.5 kg
[~2022-06-03 15:13] MED LIST changes: +HYDROCODONE-AC1 EA10 PO
[2022-06-03 15:54] LABS: BASOPHILS ABSOLUTE AUTO 0.06 K/mm3 (0.00-0.23); BASOPHILS PERCENT AUTO 1 % (0-2); EOSINOPHILS ABSOLUTE AUTO 0.04 K/mm3 (0.00-0.68); EOSINOPHILS PERCENT AUTO 1 % (0-6); Hematocrit 41.3 % (33.0-51.0); Hemoglobin 13.4 g/dL (11.5-16.0); IMMATURE GRAN ABSOLUTE AUTO 0.02 K/mm3 (0.00-0.10); IMMATURE GRAN PERCENT AUTO 0 % (0-1); LYMPHOCYTES ABSOLUTE AUTO 1.59 K/mm3 (0.84-5.20); LYMPHOCYTES PERCENT AUTO 28 % (21-46); MONOCYTES ABSOLUTE AUTO 0.78 K/mm3 (0.16-1.47); MONOCYTES PERCENT AUTO 14 % (4-13); Mean Corpuscular HGB 28.6 pg (26.0-34.0); Mean Corpuscular HGB Conc 32.4 g/dL (31.5-36.5); Mean Corpuscular Volume 88 fL (80-100); Mean Platelet Volume 12.4 fL (9.1-12.4); NEUTROPHILS ABSOLUTE AUTO 3.25 K/mm3 (1.96-9.15); NEUTROPHILS PERCENT AUTO 57 % (41-73); Platelet Count 100 K/mm3 (150-400); RDW Coefficient Variation 14.6 % (11.7-14.2); RDW Standard Deviation 46.9 fL (35.1-46.3); Red Blood Cell Count 4.69 M/mm3 (3.80-5.20); White Blood Cell Count 5.74 K/mm3 (4.00-11.30)
[2022-06-03 16:15] LABS: Albumin, Blood 3.3 g/dL (3.4-5.0); Albumin/Globulin Ratio 0.9 (0.8-1.8); Bilirubin, Total 0.4 mg/dL (0.1-1.0); Bun/Creatinine Ratio 12.3 (12.0-20.0); Creatinine, Blood 1.14 mg/dL (0.40-1.00); Globulin, Blood 3.7 g/dL (2.2-4.0); Potassium, Blood 3.7 mmol/L (3.5-5.5)
== END 2022-06-03 21:50 | disposition home or self-care (01) ==
LOC: ER 15:13
PROVIDERS: Physician Assistant
DX: R07.81 Pleurodynia (principal); J44.9 Chronic obstructive pulmonary disease, unspecified; I10 Essential (primary) hypertension; K21.9 Gastro-esophageal reflux disease without esophagitis; I48.91 Unspecified atrial fibrillation; Z79.01 Long term (current) use of anticoagulants; Z79.899 Other long term (current) drug therapy; Z87.891 Personal history of nicotine dependence
CPT/HCPCS: 36415; 71046; 80053; 83690; 83880; 84484; 85025; 93005; 93010; J1885

== ENCOUNTER → 2023-02-01 | Outpatient (CLI) | payer MEDICARE, OTHER ==
[2023-02-01 12:26] LABS: Stool Occult Bld Immuno 1 Positive (NEGATIVE)
== END | disposition home or self-care (01) ==
LOC: LAB SHORT 08:30 → LAB 08:30
PROVIDERS: Student in an Organized Health Care Education/Training Program
DX: D50.9 Iron deficiency anemia, unspecified (principal)
CPT/HCPCS: 82274

== ENCOUNTER 2024-10-23 07:36 | Day surgery (SDC) | payer MEDICARE, OTHER | END 2024-10-23 23:00 | disposition home or self-care (01) | LOC: MOI US 07:36 | DX: C50.412 Malignant neoplasm of upper-outer quadrant of left female breast (principal) | CPT/HCPCS: 19285; 77065; A4648 ==

== ENCOUNTER 2024-11-05 05:00 | Day surgery (SDC) | payer MEDICARE, OTHER ==
[~2024-11-05] VITALS: Ht 167.6 cm; Wt 58.1 kg
[2024-11-05] MEDS ORDERED: propofoL 20 ML IV ONE (09:38)
[2024-11-05] MEDS ORDERED: Dexamethasone Sod Phos 10 MG/ML 1ML VIAL ONE (09:50)
[2024-11-05] MEDS ORDERED: Ondansetron HCl 2 MG / ML 2ML Vial ONE (09:50)
[2024-11-05] MEDS ORDERED: Methylene Blue 1% 100 MG/10 ML VIAL ONE (10:22)
[2024-11-05] MEDS ORDERED: Lactated Ringer's 1,000 ML IV ONE (10:42)
[2024-11-05] MEDS ORDERED: FERROCITE324 MG PO (10:50)
[2024-11-05] MEDS ORDERED: LOSA50 PO (10:51)
[2024-11-05] MEDS ORDERED: Crestor40 MG PO (10:51)
[2024-11-05] MEDS ORDERED: CeFAZolin Sodium 2,000 MG VIAL ONE (10:55)
[2024-11-05] MEDS ORDERED: NS 50 ML IV ONE (10:55)
[2024-11-05] MEDS ORDERED: FentaNYL Citrate 50 MCG/ML 2 ML Injection ONE ×2 (11:34→13:30)
[2024-11-05] MEDS ORDERED: Bupivacaine 0.5% Inj 50 ML Vial (NON CHARGE) XX ONE (12:02)
--- NOTE | 2024-11-05 12:14 | NUR ---
11/05/24 1214 Yohannes Swartz History, Chart, Medications and Allergies reviewed before start of procedure.PT TO OR VIA GURN. TOP AND BOTTOM DENTURES REMOVED IN PRE OP AND PLACED IN CUP WITH PT IDENTIFICATION BMET TOP.
[2024-11-05] MEDS ORDERED: ePHEDrine Sulfate 50 MG/ML 1ML Injection ONE (12:22)
[2024-11-05] MEDS ORDERED: Phenylephrine HCl 100 MCG/ML-NS 10MLSYR (1MG/10ML) ONE (12:43)
--- NOTE | 2024-11-05 13:05 | NUR ---
11/05/24 Aziza Sanders ARRIVED TO PACU ON 2 LPM VIA NC AND WITH OPA IN PLACE
[2024-11-05] MEDS ORDERED: HYDROcodone 5-APAP 325 TAB ONE (13:30)
--- NOTE | 2024-11-05 13:54 | NUR ---
11/05/24 6279 SILVIA FUENTES WHILE ASSISTING PT WITH PUTTING LOWER CLOTHING ON, I NOTICED BLOTCHING OF SKIN ON LOWER EXTREMITIES. HANDS ARE COOL TO TOUCH WELL. PT ADMITS THAT THIS IS NORMAL FOR HER BUT DOESN'T KNOW WHY. SYMPTOMS SIMILAR TO REYNODS. PT VERY QUIET AND WITHDRAWN. DENTURES WERE GIVEN TO PT VANESSA IN SDU PER REQUESTED.
[2024-11-05 14:53] VITALS: BP 136/90
== END 2024-11-05 15:05 | disposition home or self-care (01) ==
LOC: ORSCSDS 05:00 → NM 10:00 → ORSCSDS 10:00
PROVIDERS: Surgery
PROC: 07T60ZZ Resection of Left Axillary Lymphatic, Open Approach (ICD-10-PCS; principal; 2024-11-05 12:15)
PROC: 0HTU0ZZ Resection of Left Breast, Open Approach (ICD-10-PCS; principal; 2024-11-05 12:15)
DX: C50.412 Malignant neoplasm of upper-outer quadrant of left female breast (principal); D36.0 Benign neoplasm of lymph nodes; Z17.0 Estrogen receptor positive status [ER+]; Z17.21 Progesterone receptor positive status; Z17.32 Human epidermal growth factor receptor 2 negative status; I10 Essential (primary) hypertension; E78.5 Hyperlipidemia, unspecified; I48.0 Paroxysmal atrial fibrillation; Z79.01 Long term (current) use of anticoagulants; K21.9 Gastro-esophageal reflux disease without esophagitis; I27.20 Pulmonary hypertension, unspecified; D69.6 Thrombocytopenia, unspecified; Z79.899 Other long term (current) drug therapy
CPT/HCPCS: 38792; 88307; 88342; A9270; A9520; J0690; J1100; J2371; J2405; J2704; J3010; Q9968

== ENCOUNTER → 2024-12-21 | Day surgery (SDC) | payer MEDICARE, OTHER ==
[~2024-12-21] VITALS: Ht 165.1 cm; Wt 59.0 kg
[~2024-12-21] MED LIST changes: +Crestor40 MG PO; +Dexamethasone Sod Phos 10 MG/ML 1ML VIAL ONE; +FERROCITE324 MG PO; +Ketorolac Tromethamine 30mg Vial ONE; +LOSA50 PO; +Lidocaine HCl 2% 20 ML MDV ONE; +NS 1,000 ML IV ONE; +Ondansetron HCl 2 MG / ML 2ML Vial ONE; +propofoL 20 ML IV ONE
[2024-12-21 06:52] VITALS: BP 148/105
[2024-12-21 07:00] VITALS: BP 150/95
[2024-12-21 07:18] VITALS: BP 106/63
[2024-12-21 07:22] VITALS: BP 102/69
[2024-12-21 07:26] VITALS: BP 106/67
--- NOTE | 2024-12-21 07:29 | NUR ---
ASSUMED CARE FROM ANETHESIA. PT AWAKE AND VERBALIZING WELL. SR 60BPM POST CARDIOVERSION.
[2024-12-21 07:36] VITALS: BP 100/63
--- NOTE | 2024-12-21 07:49 | NUR ---
PT AND DAUGHTER VERBALIZED UNDERSTANDING OF WRITTEN AND VERBAL D/C INST. SR 60BPM ON D/C. IV REMOVED. PT TAKEN OUT OF THE HRT CENTER VIA W/C.
== END ==
LOC: MHTC 06:30 → ORSCMMR 06:30 → MHTC 06:31 → ORSCMMR 07:00 → ORD 07:00 → MHTC 23:00 → ORSCMMR 23:00
DX: I48.0 Paroxysmal atrial fibrillation (principal); J44.9 Chronic obstructive pulmonary disease, unspecified; E78.5 Hyperlipidemia, unspecified; K21.9 Gastro-esophageal reflux disease without esophagitis; I10 Essential (primary) hypertension; Z79.01 Long term (current) use of anticoagulants; Z79.899 Other long term (current) drug therapy
CPT/HCPCS: 92960; J1100; J1885; J2405; J2704; J7030

== ENCOUNTER → 2025-03-18 | Outpatient (CLI) | payer MEDICARE, OTHER ==
[~2025-03-18] MED LIST changes: -Dexamethasone Sod Phos 10 MG/ML 1ML VIAL ONE; -Ketorolac Tromethamine 30mg Vial ONE; -Lidocaine HCl 2% 20 ML MDV ONE; -NS 1,000 ML IV ONE; -Ondansetron HCl 2 MG / ML 2ML Vial ONE; -propofoL 20 ML IV ONE
== END ==
LOC: LAB 11:14 → LAB SHORT 11:14
DX: R30.0 Dysuria (principal)
CPT/HCPCS: 87086